=== PATIENT | female | born 1995 | race Caucasian/White ===

== ENCOUNTER 2018-10-28 07:52 | Emergency (ER) | payer OTHER ==
[2018-10-28 08:01] VITALS: BP 138/78; PULSE 110
--- NOTE | 2018-10-28 08:23 | EDM.PDOC ---
ED HPI GENERAL MEDICAL PROBLEM - General Chief Complaint: Fever Stated Complaint: FEVER/ACHES Time Seen by Provider: 10/28/18 08:05 Source of Information: Reports: Patient, RN, RN Notes Reviewed History Limitations: Reports: No Limitations - History of Present Illness INITIAL COMMENTS - FREE TEXT/NARRATIVE: Pt to ER with c/o fever, chills, generalized weakness, generalized body aches, sore throat, nausea, dry heaves, diarrhea since . States she has been using Tylenol and Ibuprofen for fever and body aches. States she has been trying to drink enough fluids. Denies cough. Onset: Gradual - Related Data Allergies Allergy/AdvReac Type Severity Reaction Status Date / Time amoxicillin [Amoxicillin] Allergy Rash Verified 10/28/18 07:58 Home Meds: Home Meds Control 12/27/14 [History] Escitalopram [Lexapro] 1 tab PO DAILY 12/27/14 [History] Acetaminophen [Tylenol Extra Strength] 500 mg PO PRN 10/28/18 [History] Ibuprofen 200 mg PO PRN 10/28/18 [History] Past Medical History HEENT History: Reports: Impaired Vision Cardiovascular History: Reports: None Respiratory History: Reports: None Other Gastrointestinal History: History of IBS (?) per pt. Was on Miralax for a couple of weeks for bad gas. Genitourinary History: Reports: None [employer]UN[employer] WORKER History: Reports: None Musculoskeletal History: Reports: None Neurological History: Reports: None Psychiatric History: Reports: Anxiety Endocrine/Metabolic History: Reports: None Hematologic History: Reports: None Immunologic History: Reports: None Oncologic (Cancer) History: Reports: None Dermatologic History: Reports: Other (See Below) Other Dermatologic History: bunyun - Infectious Disease History Infectious Disease History: Reports: None - Past Surgical History Head Surgeries/Procedures: Reports: None HEENT Surgical History: Reports: Tonsillectomy Social & Family History - Family History Family Medical History: Noncontributory - Tobacco Use Smoking Status *Q: Never Smoker Second Hand Smoke Exposure: No - Caffeine Use Caffeine Use: Reports: Coffee - Recreational Drug Use Recreational Drug Use: No ED ROS GENERAL - Review of Systems Review Of Systems: ROS reveals no pertinent complaints other than HPI. ED EXAM, GENERAL - Physical Exam Exam: See Below Exam Limited By: No Limitations General Appearance: Alert, WD/WN, Mild Distress Eye Exam: Bilateral Eye: EOMI, Normal Inspection Ears: Normal External Exam, Normal Canal, Hearing Grossly Normal, Normal TMs Nose: Normal Inspection, Normal Mucosa, No Blood Throat/Mouth: Normal Inspection, Normal Lips, Normal Teeth, Normal Gums, Normal Oropharynx, Normal Voice, No Airway Compromise Head: Atraumatic, Normocephalic Neck: Normal Inspection, Supple, Non-Tender, Full Range of Motion Respiratory/Chest: No Respiratory Distress, Lungs Clear, Normal Breath Sounds, No Accessory Muscle Use, Chest Non-Tender Cardiovascular: Normal Peripheral Pulses, Regular Rate, Rhythm, No Edema, No Gallop, No JVD, No Murmur, No Rub GI/Abdominal: Normal Bowel Sounds, Soft, Non-Tender, No Organomegaly, No Distention, No Abnormal Bruit, No Mass (Female) Exam: Deferred Rectal (Female) Exam: Deferred Back Exam: Normal Inspection, Full Range of Motion, NT Extremities: Normal Inspection, Normal Range of Motion, Non-Tender, Normal Capillary Refill, No Pedal Edema Neurological: Alert, Oriented, CN II-XII Intact, Normal Cognition, Normal Gait, Normal Reflexes, No Motor/Sensory Deficits Psychiatric: Normal Affect, Normal Mood Skin Exam: Warm, Dry, Intact, Normal Color, No Rash Lymphatic: Adenopathy (anterior/posterior cervical +2) Course - Vital Signs Last Recorded V/S: Last Vital Signs Temp 98.2 F 10/28/18 07:59 Pulse 110 H 10/28/18 07:59 Resp 18 10/28/18 07:59 BP 138/78 10/28/18 07:59 Pulse Ox 98 10/28/18 07:59 - Orders/Labs/Meds Orders: Active Orders 24 hr Category Date Time Status CULTURE STREP A CONFIRMATION [RM] Stat Lab 10/28/18 08:08 Results STREP SCRN A RAPID W CULT CONF [RM] Stat Lab 10/28/18 08:08 Results Labs: Rapid Strep: Negative Influenza A: negative Influenza B: Negative Departure - Departure Time of Disposition: 08:36 Disposition: Home, Self-Care 01 Condition: Fair Clinical Impression: Viral illness, Gastroenteritis - Discharge Information *PRESCRIPTION DRUG MONITORING PROGRAM REVIEWED*: No *COPY OF PRESCRIPTION DRUG MONITORING REPORT IN PATIENT ROGELIO: No Instructions: Viral Gastroenteritis, Adult, [id number], Viral Illness, Adult Referrals: Melissa Ortiz [Nurse Practitioner] - Forms: ED Department Discharge Additional Instructions: May use Tylenol and/or Ibuprofen as directed for pain/fever Drink small amounts of water and gatorade frequently Follow up with your primary care facility if no improvement - My Orders Last 24 Hours: My Active Orders 10/28/18 08:08 CULTURE STREP A CONFIRMATION [RM] Stat STREP SCRN A RAPID W CULT CONF [] Stat - Assessment/Plan Last 24 Hours: My Active Orders 10/28/18 08:08 CULTURE STREP A CONFIRMATION [] Stat STREP SCRN A RAPID W CULT CONF [] Stat
== END 2018-10-28 08:45 | disposition home or self-care (01) ==
LOC: DL.ED 07:52
DX: K52.9 Noninfective gastroenteritis and colitis, unspecified (principal); B34.9 Viral infection, unspecified; F41.9 Anxiety disorder, unspecified; Z88.1 Allergy status to other antibiotic agents; Z79.899 Other long term (current) drug therapy
CPT/HCPCS: 87081; 87430; 87804; 99283